=== PATIENT | female | born 1990 | race Caucasian/White ===

== ENCOUNTER 2016-12-19 07:21 | Emergency (ER) | payer OTHER | END 2016-12-19 08:20 | disposition home or self-care (01) | LOC: ER1 07:21 | DX: S61.235A Puncture wound without foreign body of left ring finger without damage to nail, initial encounter (principal); I10 Essential (primary) hypertension; W46.0XXA Contact with hypodermic needle, initial encounter; Y93.89 Activity, other specified; Y92.69 Other specified industrial and construction area as the place of occurrence of the external cause; Y99.0 Civilian activity done for income or pay; Z23 Encounter for immunization; Z79.899 Other long term (current) drug therapy | CPT/HCPCS: 80074; 86706; 90471; 90715; 99283 ==

== ENCOUNTER → 2021-12-12 | Outpatient (CLI) | payer BC | LOC: MRI 08:31 | DX: M75.101 Unspecified rotator cuff tear or rupture of right shoulder, not specified as traumatic (principal); M19.011 Primary osteoarthritis, right shoulder; M25.711 Osteophyte, right shoulder | CPT/HCPCS: 73221 ==

== ENCOUNTER → 2022-05-04 | Outpatient (CLI) | payer BC | LOC: LAB 15:01 | DX: R39.15 Urgency of urination (principal); R10.9 Unspecified abdominal pain | CPT/HCPCS: 87077; 87086; 87186 ==

== ENCOUNTER → 2022-05-07 | Outpatient (CLI) | payer BC | LOC: US 09:30 | DX: R10.11 Right upper quadrant pain (principal) | CPT/HCPCS: 76705 ==